=== PATIENT | male | born 1975 | race Caucasian/White ===

== ENCOUNTER 2018-01-09 21:57 | Outpatient (REF) | payer MEDICAID, SELFPAY ==
[2018-01-09 22:10] LABS: HCT 46.4 % (40.0-50.0); HGB 15.8 g/dL (13.5-17.5); Mean Corp. HGB Concentration 34.1 g/dL (32.0-36.0); Mean Corpuscular Hemoglobin 32.7 pg (27.0-33.0); Mean Corpuscular Volume 96.1 fL (80-95); Mean Platelet Volume 11.2 fL (8.0-11.0); Platelet Count 196 x1000/uL (130-400); RBC 4.83 m/cumm (4.50-6.00); RBC Distribution Width 11.8 % (11.8-14.1); White Blood Cell Count 8.17 k/cumm (4.4-10.8)
[2018-01-09 22:44] LABS: ALT 45 U/L (12-78); AST 28 U/L (15-37); Albumin 4.2 g/dL (3.4-5.0); Alkaline Phosphatase 88 U/L (46-116); Anion Gap 10.2 mmol/L (3-11); BUN 14 mg/dL (7-18); Bilirubin, Total 0.8 mg/dL (0.2-1.0); CO2 27.8 mmol/L (21.0-32.0); CREATININE 0.93 mg/dL (0.70-1.30); Calcium 8.9 mg/dL (8.5-10.1); Chloride 103 mmol/L (98-107); Cholesterol 199 mg/dL (50-200); Ferritin 210 ng/mL (8-388); Glucose 95 mg/dL (70-100); HDL Cholesterol 61 mg/dL (40-60); LDL CHOLESTEROL 123 mg/dL (<100); Potassium 3.9 mmol/L (3.5-5.1); Sodium 141 mmol/L (136-145); Triglyceride 127 mg/dL (30-150)
== END 2018-01-09 22:17 ==
LOC: NCHCN 21:57
PROVIDERS: PCP Internal Medicine; Visit Provider Internal Medicine
DX: I10 Essential (primary) hypertension (principal); Z13.220 Encounter for screening for lipoid disorders
CPT/HCPCS: 80053; 80061; 83721; 85027; 82728

== ENCOUNTER 2019-01-21 01:22 | Outpatient (CLI) | payer MEDICAID, SELFPAY ==
--- NOTE | 2019-01-21 15:05 | DI.US_ITS ---
EXAM: US SCROTUM CLINICAL HISTORY: SCROTAL PAIN N50.82. TECHNIQUE: Ultrasound performed using standard protocol. COMPARISON: No exams were available for comparison FINDINGS: Scrotal ultrasound was performed according to the usual protocol. There is homogeneous appearance of the testes except for incidental bilateral testicular microlithiasis. The epididymi appear normal a nd show normal vascular flow. Testicular vascular flow also normal symmetrical. No hydrocele or nabil icocele identified. IMPRESSION: Negative scrotal ultrasound.
== END 2019-01-21 01:42 ==
PROVIDERS: PCP Internal Medicine; Visit Provider Internal Medicine
DX: N50.82 Scrotal pain (principal); N50.89 Other specified disorders of the male genital organs
CPT/HCPCS: 76870

== ENCOUNTER 2021-05-31 10:03 | Outpatient (REF) | payer MEDICAID, SELFPAY ==
[2021-05-31 18:45] LABS: Anion Gap 8.5 mmol/L (3-11); BUN 13 mg/dL (7-18); CO2 28.5 mmol/L (21.0-32.0); CREATININE 0.9 mg/dL (0.70-1.30); Calcium 8.8 mg/dL (8.5-10.1); Calculated LDL 96 mg/dL (<100); Chloride 104 mmol/L (98-107); Cholesterol 177 mg/dL (<200); Glucose 77 mg/dL (74-106); HDL Cholesterol 67 mg/dL (40-60); Potassium 4.5 mmol/L (3.5-5.1); Sodium 141 mmol/L (136-145); Triglyceride 73 mg/dL (<150)
[2021-06-02 10:13] LABS: HIV-1/2 Ag & Ab Screen Negative (Negative)
[2021-06-02 10:15] LABS: Hepatitis C Ab w Rflx HCV PCR Negative (Negative)
== END 2021-05-31 10:04 | disposition home or self-care (01) ==
LOC: NCHCN 10:03
PROVIDERS: PCP Internal Medicine; Visit Provider Nurse Practitioner Family
DX: I10 Essential (primary) hypertension (principal); R31.21 Asymptomatic microscopic hematuria; Z11.4 Encounter for screening for human immunodeficiency virus [HIV]; Z11.59 Encounter for screening for other viral diseases
CPT/HCPCS: 80048; 80061; 86803; 87389

== ENCOUNTER → 2021-06-21 03:09 | Outpatient (CLI) | payer MEDICAID, SELFPAY ==
--- NOTE | 2021-06-21 13:45 | DI.US_ITS ---
Exam(s) US SOFT TISS EXTREMITY/GROIN EXAM: US SOFT TISS EXTREMITY/GROIN CLINICAL HISTORY: SOFT TISSUE MASS, M79.9. TECHNIQUE: Ultrasound was performed using standard protocol. COMPARISON: CT RENAL COLIC WO CONTRAST from 05/20/2012 CT ABD PELVIS WITH CONTRAST from 09/06/2015 FINDINGS: Sonographic assessment utilizing grayscale and color Doppler imaging was performed and targeted to th e area of clinical concern. A smoothly marginated hypoechoic mildly vascular nodule is noted in the subcutaneous fat of the poste rolateral upper thigh, corresponding to the palpable abnormality. It measures 1.8 x 0.9 x 1.7 cm. I t does not have the typical appearance of a lipoma. IMPRESSION: 1.8 centimeter circumscribed solid mass in the soft tissues corresponding to the palpable abnormality .Biopsy is recommended for further evaluation. DATA REPOSITORY:
== END ==
PROVIDERS: PCP Internal Medicine; Visit Provider Nurse Practitioner Family
DX: R22.2 Localized swelling, mass and lump, trunk (principal)
CPT/HCPCS: 76882

== ENCOUNTER 2023-03-11 15:40 | Emergency (ER) | payer MEDICAID, SELFPAY ==
--- NOTE | 2023-03-11 15:45 | DI.RAD_ITS ---
Exam(s) XR KNEE RT 3V AP,LAT,AMI EXAM: XR KNEE RT 3V AP,LAT,AMI CLINICAL HISTORY: R knee pain, felt a pop/snap. TECHNIQUE: 2D digital imaging was performed of the right knee. Three views obtained. AP, lateral an d PA tunnel views were obtained. COMPARISON: No exams were available for comparison FINDINGS: BONES: No acute fracture is present. No bony destructive lesion is seen. JOINTS: The knee is normally aligned. No joint effusion is seen. SOFT TISSUE: Normal. IMPRESSION: Unremarkable radiographs of the right knee. DATA REPOSITORY: RADIATION DOSE DELIVERED:
[2023-03-11 15:53] VITALS: BP 153/88; PULSE 66; RESP 18; TEMP 37.7; O2SAT 97
--- NOTE | 2023-03-11 15:56 | ED.GENADUL_ITS ---
Discharge Plan Disposition Patient Disposition: Home Condition: Stable Discharge Details Clinical Impression: Internal derangement of right knee Primary Care Provider: Cassius Marte ED Provider: Maurice Cohn Home Meds and New Rx's Prescriptions: Continued lisinopril 5 mg tablet 5 mg PO DAILY Held naproxen 500 MG tablet 500 mg PO Q12H PRN PRNQty: 10 0RF Hold Instructions: Resume on 03/25/23. PRN - do not take naproxen and ibuprofen at the same time Discharge Instructions Instructions: Knee Sprain (ED) Additional Instructions: You were seen in the emergency department for your right knee pain with a snapping or popping sensation. I question if you had some laxity to your ACL ligament. You may also have a meniscus injury, your x-ray shows no acute fracture does show a small effusion or swelling. We are providing you with a knee immobilizer and crutches, please toe tap and use only very light partial weightbearing on this leg. If this causes excessive pain please do not weight- bear whatsoever. Please rest, ice, compress and elevate the knee as often as possible, please use therapeutic dosing of Tylenol (acetamenophen) & Advil (ibuprofen) in an alternating fashion as follows: Take 1000mg of Tylenol every 6 hours without missing doses- that is 4 times per day. [place] in between the Tylenol dosings, take 400-600mg of Advil also on a 6 hour schedule, that is also 4 times per day. The daily maximum dosing of Tylenol is 4000mg, and the daily maximum dosing of Advil is 2400mg. This is safe to do for weeks. Please note that some common cold medications & prescription pain medications may contain acetamenophen and you need to read OTC drug labels and factor that in to maximum daily dosings. Please pursue an outpatient referral from your primary care provider for an orthopedic visit for specialized knee evaluation, this knee evaluation will be much more tolerable if you aggressively try to get the swelling down and take the correct amounts of Tylenol and ibuprofen religiously. Referrals: [facility] [Provider Group] Cassius Marte MD [Primary Care Provider] - Discharge Data Discharge Date/Time-TO BE ENTERED AT DEPARTURE: 03/11/23 17:43 Medical Decision Making This dictation utilizes [id number] dictation software and may contain unedited grammatical errors. 48 y/o M presents to ED today with a chief complaint of R knee pain, slipped off a tire, felt a snap/pop, R-foot dominant. Onset and characteristics include pain with movement and WB, sharp, no skin changes, no swelling/gross deformity. Patients' medical history: negative, otherwise healthy. Family and social history: noncontributory. Pertinent exam findings / vital signs include neurovascular intact in the right lower extremity, no overt crepitus, question laxity with Alicia test. Differential / pathologies of concern include internal knee injury, ACL tear, meniscal injury, fracture. Diagnostic studies of: -XR R Knee. -XR shows no acute fracture. Interventions of: -1g Tylenol, 400mg ibuprofen, ice pack. ED Course: Patient seen for mechanical fall and feeling a snap or a pop from his knee, question laxity on Alicia test, his x-ray shows no acute fracture he does have a small effusion, I did counseling specialist him on a possible internal derangement of the knee and provided knee immobilizer and crutches and recommend rice therapy and max dosing Tylenol and ibuprofen and following up with orthopedics by primary care referral. Findings not consistent with fracture/NV compromise. Disposition of Internal Derangement of Right Knee. Patient verbalized understanding of the plan and return to ED criteria and engaged in shared decision making. Medical Records Medical records reviewed: Yes I reviewed the patient's medical records. Imaging Data Radiologic Study: Imaging: X-Ray My impression: shows effusion Radiologist's impression: V rad read shows no fracture or dislocation, unremarkable joint spaces HPI General Date/Time Provider Initiated Documentation: 03/11/23 15:55 . HPI Narrative: 48 year-old male presents to ED today by POV/assistance with hospital wheelchair with a chief complaint of R knee pain, slipped off a tire while standing on it, R-foot dominant, with onset 3 hours ago. Quality described as felt a snap in his knee, no pain with knee still- pain with movement and WB, did feel a snap or popping sensation, no radiation to complete numbness, deformity, hip pain, headstrike during fall. Severity is described as 8/10. Palliating factors include nothing specific attempted. Provoking factors include nothing specific. Events leading up to the incident/Associated Symptoms: patient is otherwise healthy. Patient not anticoagulated. Related Data Home Medications Medication Instructions Recorded Confirmed naproxen 500 mg tablet 500 mg PO Q12H PRN PRN #10 tabs 09/06/15 07/13/21 lisinopril 5 mg tablet 5 mg PO DAILY 07/13/21 07/13/21 Previous Rx's Medication Instructions Recorded naproxen 500 mg tablet 500 mg PO Q12H PRN PRN #10 tabs 09/06/15 Allergies Allergy/AdvReac Type Severity Reaction Status Date / Time No Known Allergies Allergy Unverified 07/13/21 14:03 General Stated Complaint: Orthopedic JENNIFER: 4 Review of Systems All systems reviewed & are unremarkable except as noted in HPI and below PFSH All Active Problems (Updated 03/11/23 @ 17:21 by MINH Reina) Internal derangement of right knee (Acute) Hypertension (Chronic) Mass of right thigh (Acute) Social History Smoking/Tobacco Use Status: Never Smoking risk assessment performed?: Yes Drug use: Never Exam Narrative Exam Narrative: GENERAL APPEARANCE: Well-nourished, non-toxic, awake and alert, atraumatic, no acute distress. SKIN: Warm, pink, dry, intact, without rashes/lesions/ulcerations. HEAD: Normocephalic, atraumatic, normal hair distribution for gender/age. EYES: Pupils PERRLA, EOMs intact without nystagmus, normal conjunctiva, no exudates on lids/lashes. ENT: Nares patent, no circumoral cyanosis, no facial swelling NECK: Supple, trachea midline, painless cervical ROM. LUNGS/CHEST: Non-labored respirations, normal A/P diameter, symmetrical expansion, no chest wall deformity HEART (CV/PV): No peripheral edema, no JVD. ABDOMEN: Soft, non-distended, no guarding. MSK: Normal ROM, no swelling/deformity to bilateral UEs or LEs, moving all extremities without weakness, no cyanosis, spine midline without tenderness, normal curvature. R LE: No overt tenderness or crepitus, no gross swelling or deformity to the knee, no pain with varus valgus forces applied, question laxity with Alicia test, Mindy negative, femur stable, calf stable, no hip pain NEURO: Mental Status AAOx4 - alert to person, place, time, events No facial droop, no forehead involvement. Motor: No focal weakness - strength 5/5 in bilateral UEs and LEs, proximal and distal, symmetric. Sensory: sensation intact to light touch globally. Gait NT. PSYCH: euthymic, cooperative, pleasant, appropriate speech Course Vital Signs Vital signs: Vital Signs Temperature 37.7 C H 03/11/23 15:53 Pulse 66 03/11/23 15:53 Respiratory Rate 18 03/11/23 15:53 Blood Pressure 153/88 H 03/11/23 15:53 Pulse Oximetry 97 03/11/23 15:53 Temperature 37.7 C H 03/11/23 15:53 Temperature Source Oral 03/11/23 15:53 Pulse 66 03/11/23 15:53 Respiratory Rate 18 03/11/23 15:53 Blood Pressure 153/88 H 03/11/23 15:53 Pulse Oximetry 97 03/11/23 15:53 Oxygen Delivery Method Room Air 03/11/23 15:53 Oxygen Flow Rate 0 03/11/23 15:53
[2023-03-11] MEDS: Acetaminophen 500 MG TAB 1000 MG PO (16:21)
--- NOTE | 2023-03-11 17:01 | DI.VRAD_ITS ---
PROCEDURE INFORMATION: Exam: XR Right Knee Exam date and time: 03/11/2023 4:33 PM Age: 48 years old Clinical indication: Other: RT pain, felt pop/snap TECHNIQUE: Imaging protocol: Radiologic exam of the right knee. Views: 3 views. COMPARISON: US SOFT TISS EXTREMITY/GROIN 06/21/2021 1:40 PM FINDINGS: Bones/joints: No fracture or dislocation. Joint spaces are unremarkable. Soft tissues: No significant abnormality IMPRESSION: No acute findings. Dictated and Authenticated by: Edgar Abreu MD. Ordering:MITZI Richards MD
== END 2023-03-11 17:43 | disposition home or self-care (01) ==
PROVIDERS: Emergency Provider Physician Assistant; PCP Internal Medicine
DX: M23.91 Unspecified internal derangement of right knee (principal)
CPT/HCPCS: 73562; 99283

== ENCOUNTER → 2023-03-24 00:51 | Outpatient (CLI) | payer MEDICAID, SELFPAY ==
--- NOTE | 2023-03-24 08:15 | DI.MRI_ITS ---
Exam(s) MR LOWER JOINT RT WO EXAM: MR LOWER JOINT RT WO CLINICAL HISTORY: R KNEE PAIN ,? MENISCUS TEAR,INTERNAL DERANGEMENT,M23.91 TECHNIQUE: Multiplanar multisequence MRI of the knee was performed. COMPARISON: CR,XR XR KNEE RT 3V AP,LAT,AMI from 03/11/2023 FINDINGS: EFFUSION: There is a prominent joint effusion. There is also a Reynoso cyst in the medial popliteal fo ssa. This measures approximately 6 cm length by 1 cm AP by less than 1 cm wide exhibits some sign of rupture in that there does appear to be fluid extending down the medial gastrocnemius below the leve l of this Reynoso cyst. MARROW:There is no evidence of fracture, bone contusion, nor osteochondral defects.. There are no si gnificant osseous lesions. PATELLOFEMORAL COMPARTMENT: The quadriceps tendon is intact. The patellar ligament is intact. There is no significant thinning of the retropatellar cartilage. No evidence of fissure nor signific ant chondral defect. No osteochondral defect at this level.There is no intraosseous signal to sugges t recent patellar dislocation. There use some tearing of the medial capsule structures at junction o f medial patellar retinaculum and MCL. CRUCIATE LIGAMENTS: The anterior cruciate ligament is intact.The posterior cruciate ligament is intac t. MEDIAL COMPARTMENT/MEDIAL MENISCUS: Medial meniscus is torn.Tear involves both the anterior posterior horns and there is bucket-handle could aeration evident but without prominent displacement of menisc al fragment into the intercondylar notch. There is minute between the outer aspect of the medial men iscus and the MCL.. There is no significant cartilage loss over the medial femoral condyle nor articular edema. No osteo chondral defects. Subjacent medial tibial plateau appears unremarkable. MEDIAL COLLATERAL LIGAMENT: Sprain signal. There is also some tearing at junction with medial patell ar retinaculum. LATERAL COMPARTMENT/LATERAL MENISCUS: There is no evidence of lateral meniscal tear.There are no albaro dral defects, osteochondral defects, subarticular marrow edema, nor osteophytes evident. ILIOTIBIAL BAND: Intact LATERAL COLLATERAL LIGAMENT COMPLEX: The fibular collateral ligament is intact. The biceps femoris t endon is intact.Some fluid in the popliteus tendon sheath. IMPRESSION: 1. There is a bucket-handle tear of the medial meniscus involving both the anterior and posterior hor ns. There is no significant cartilage loss in the medial compartment nor osteochondral defects. No osteophytes. Lateral meniscus and lateral compartment appear unremarkable. 2. There is partial tearing of the medial patellar retinaculum at junction with the medial collateral ligament. 3. There are no cruciate ligament tears. 4. There is a mid knee joint effusion and there is a Reynoso cyst in the medial popliteal fossa. DATA REPOSITORY:
== END ==
PROVIDERS: PCP Internal Medicine; Visit Provider Student in an Organized Health Care Education/Training Program
DX: S83.211A Bucket-handle tear of medial meniscus, current injury, right knee, initial encounter (principal); X58.XXXA Exposure to other specified factors, initial encounter
CPT/HCPCS: 73721

== ENCOUNTER 2023-04-06 10:49 | Day surgery (SDC) | payer MEDICAID, SELFPAY ==
[2023-04-06] VITALS (11 sets, daily range): BP systolic 95–158; BP diastolic 54–93; PULSE 52–72; RESP 14–23; TEMP 36.2–36.7; O2SAT 95–99; BMI 24.0
--- NOTE | 2023-04-06 07:15 | PDOC.DSDIS_ITS ---
Date of service: 04/06/23 Time of Service: 11:30 Discharge Plan Disposition Patient Disposition: Home Condition: Stable Discharge Details Attending Provider: Regan Mays Primary Care Provider: Cassius Marte Home Meds and New Rx's Prescriptions: New aspirin 81 mg tablet,delayed release (DR/EC) 81 mg PO DAILY 14 Days Qty: 14 0RF naproxen 250 mg tablet 250 - 500 mg PO BID PRNQty: 40 0RF Rx Instructions: take with a meal oxycodone 5 mg tablet 5 - 10 mg PO Q4H MDD 30 mg PRN (Reason: moderate to severe pain) Qty: 12 0RF Discontinued ibuprofen 600 mg tablet 600 mg PO Q6H PRN Discharge Instructions Additional Instructions: Surgery: Right knee arthroscopy with partial medial meniscectomy and synovectomy/lysis of adhesions. Activity: Weightbearing as tolerated. Advance range of motion as comfort allows. No knee brace or crutches needed as soon as comfortable. Recommend avoiding sports, pivoting, and squatting for 6-8 weeks. A physical therapy pres cription will be sent electronically to start in 2 to 3 weeks. Prescriptions: Aspirin 81 mg take 1 daily to prevent a blood clot for 14 days Naproxen 250 mg take 1-2 every 12 hours with a meal as needed for moderate pain Oxycodone 5 mg take 1-2 every 4-6 hours as needed for severe pain You may use [id number] Tylenol (acetaminophen) as needed for mild pain. These pain medications may be taken all at once or in different combinations as needed. Also, recommend Colace (docusate) as a stool softener as surgery and pain medicine cause constipation. You may try [id number] diphenhydramine (Benadryl) 25-50 mg nightly as a sleep aid Dressings: Leave dressing in place for 3 days. May then remove and leave open to air or cover incisions with Band-Aids. Leave the sticky Steri-Strips in place until they fall off or remove them after you shower. May shower after 5 days. Follow-up: 10-[address] Mays You may take off the leg compression stockings this evening at home. You may also leave them on a few days longer if you have a history of leg swelling or edema. Let us know right away if you develop any redness, drainage, fevers, chest pain, or trouble breathing. Do not drink alcohol or drive for at least 24 hours after anesthesia. Please call the office during business hours with any questions or concerns. Discharge Orders Discharge Orders: Discharge Order (Routine); Ordered 04/06/23 Ordered By: Tristan Almeida DS: Diagnosis Discharge Diagnosis (1) Acute medial meniscus tear of right knee: Status: Acute
--- NOTE | 2023-04-06 07:22 | ROE_ITS ---
Date of service: 04/06/23 Time of Service: 14:00 Operative Note Operative Note DATE OF PROCEDURE: 04/06/23 PRE-OP DIAGNOSIS: Right knee 1. Displaced medial meniscus tear with block to motion POST-OP DIAGNOSIS: same 1. Bucket-handle medial meniscus tear 2. Suprapatellar adhesions 3. Patellofemoral plica 4. Mild medial femoral condyle chondromalacia PROCEDURE: Right knee 1. Partial medial meniscectomy, CPT #57565 2. Lysis of adhesions and synovectomy, CPT #20980: Suprapatellar, patellofemoral, and anterior SURGEON: Regan Mays TRACK HOE OPERATOR: None None ANESTHESIA TYPE: Local By Surgeon and General LMA/ETT Refer to Anesthesia Record ESTIMATED BLOOD LOSS: 5 PATHOLOGY: none sent TOURNIQUET TIME: 0 Patient was transported to: PACU Patient's condition: stable Indications: Please see complete medical record for details. Findings: Exam under anesthesia: Block to full extension and deep flexion, not vigorously tested due to known displaced meniscus tear. Stable Alicia, varus, and valgus stress. Arthroscopic findings: Moderate suprapatellar adhesions and abundant inflamed engaging patellofemoral synovitis with separate hernandez medial gutter into patellofemoral joint plica. Moderate intercondylar synovitis. Intact ACL PCL. Intact lateral meniscus and lateral cartilage. Obvious displaced into the notch bucket-handle medial meniscus tear involving the majority of the posterior horn and body of the meniscus with anterior horn relatively spared. Mild medial femoral condyle chondromalacia. Complex split tearing at the junction of the displaced meniscus and the peripheral remnant into the root with high-grade tearing about the root. Complex tearing at the midportion of the tear probably posterior horn body junction. Mild horizontal tearing of the posterior horn and body remnant. Procedure Description: In the operating room, general anesthesia was induced. The patient was positioned supine on the operating room table. All bony prominences were well- padded. Preoperative antibiotics were administered. The knee was prepped and draped in the usual sterile fashion. The correct patient, procedure, and side of the procedure were all verified prior to incision. Exam under anesthesia was performed. 10 cc of 0.25% bupivacaine containing epinephrine was infiltrated about the planned anteromedial and anterolateral knee arthroscopy portals as well as about the potential accessory medial meniscal repair surgical site. The portals were established and a complete diagnostic arthroscopy was performed with relevant findings detailed above. The mechanical shaver was used to resect suprapatellar adhesions in order to allow for full range of motion postoperatively. The mechanical biter had to be used to resect a hernandez medial plical band and then it was debrided to a stable synovial margin with a mechanical shaver and radiofrequency ablator. The radiofrequency ablator was used to coagulate the suprapatellar adhesions. The mechanical shaver was then used to resect abundant engaging patellofemoral synovitis, the knee was brought into flexion, intercondylar synovitis was debrided as well exposing the displaced meniscus tissue. The radiofrequency wand was to used to coagulate tissue at the stable and with normal capsule. The medial meniscus was carefully inspected and described above. It was readily reducible into the medial compartment, but the central part of the displaced torn tissue had complex additional tearing as well as concerning tearing and poor meniscal tissue into the root. The meniscal biters and mechanical shaver were used to debride the non-salvageable displaced meniscus tissue. Fairly quickly both the root and the central portion of the tear had minimal good meniscal quality tissue left. Given both these tears, and age near 49 years old decision was made to proceed with meniscectomy. The healthy tissue was really only the displaced meniscal body, but it did not make sense to repair this tissue without any intact connections or healthy posterior horn and root as it would not function without hoop stresses intact. At the narrow point of the displaced meniscus tissue, the meniscus was transected and the posterior horn ti ssue readily removed with mechanical shaver and then debrided to a stable margin involving resection of most of the root tissue attached to this tear using an alternate between the biters, shaver, and radiofrequency wand. The anterior remnant of this placed body had to be resected in piecemeal using mechanical biters and alternate with a shaver and ultimately contoured alternating portals into the anterior horn remnant. The meniscal peripheral remnant was inspected and debrided of some superior leaflet tearing posteriorly and horizontal tearing closer to the body. The radiofrequency wand and shaver were used to contour the remnant and margins of the tear. Meniscus remnant was stable, had modest anterior horn remnant tissue, but fairly minimal from the posterior horn through the body junction. Under direct arthroscopic visualization an 18-gauge needle was passed into the knee from superolateral into the suprapatellar pouch. The knee was copiously irrigated with arthroscopic fluid until there was a clear effluent before being drained of all fluid. The anteromedial and anterolateral portals were closed in 3-0 Monocryl in a buried interrupted fashion. 20 cc of 0.25% bupivacaine with epinephrine containing 4 mg of morphine was infiltrated into the knee through the previously placed needle. Mastisol, Steri-Strips, and 4 x 4 gauze were applied over the incisions followed by sterile soft roll. The knee was then wrapped gently with an SAL comressive bandage. The patient awoke from anesthesia without complication and was transferred to the recovery room in a stable condition.
[2023-04-06] MEDS: Lactated Ringers 1,000 ML 30 ML IV (11:48)
--- NOTE | 2023-04-06 12:33 | ANES.PREOP_ITS ---
General Info Date of Service Date Performed: 04/06/23 Height: 5 ft 8 in Weight: 71.6 kg Body Mass Index (BMI): 24.0 Surgical Procedure: Operation Date: 04/06/23 13:40 Proposed Procedure Side Surgeon p Knee Arthroscopy w Meniscus Repair vs Partial Meniscectomy, Possible Micro Fracture Right Regan Mays MD Meds Allergies and Home Medications Allergies Allergy/AdvReac Type Severity Reaction Status Date / Time No Known Allergies Allergy Unverified 04/05/23 11:53 Home Medication Medication Instructions Recorded ibuprofen 600 mg tablet 600 mg PO Q6H PRN 03/28/23 Current Visit Medications: Current Medications Generic Name Dose Route Start Last Admin Trade Name Freq PRN Reason Stop Dose Admin Ringer's Solution 1,000 mls @ 30 mls/hr 04/06/23 06:00 04/06/23 11:48 IV 05/05/23 23:59 30 mls/hr INFUSION LIBBY Administration Cefazolin Sodium/Dextrose 2 gm in 50 mls @ 100 mls/hr 04/06/23 06:00 Ancef Duplex IVPB 04/06/23 16:00 PREOP LIBBY IV Miscellaneous Supplies 1 each 04/06/23 06:00 Iv Access IV 05/05/23 23:59 DIRECTED LIBBY Oxycodone HCl 0 mg 04/06/23 07:15 Oxycodone 5 Mg Tab PO 05/06/23 07:14 Q3H PRN PRN Pain Sodium Chloride 0 ml 04/06/23 06:00 Normal Saline Flush 10 Ml Syr IV 05/05/23 23:59 PRN PRN Sodium Chloride 0 ml 04/06/23 06:00 Normal Saline 10 Ml Vial IJ 05/05/23 23:59 DIRECTED PRN Sterile Water 0 ml 04/06/23 06:00 Water,Injection,Sterile 10 Ml Vial IJ 05/05/23 23:59 DIRECTED PRN PFSH Active Problems Active Problems: Problem Status Onset Code Acute medial meniscus tear of right knee 03/11/23 S83.241A Hypertension I10 Mass of right thigh R22.41 Tobacco Smoking/Tobacco Use Status: Never Alcohol Alcohol Intake: current Alcohol intake frequency: holidays/special occasions only Substance Use Substance use: Never Substance use type: does not use Vital Signs and Lab Results Vital Signs Most Recent Vital Signs in EMR: Most Recent Vital Signs Temp Pulse Resp BP Pulse Ox 36.2 C L 52 L 18 125/92 H 98 04/06/23 11:14 04/06/23 11:14 04/06/23 11:14 04/06/23 12:18 04/06/23 11:14 Lab Results Blood Type / Crossmatch: No Data to Display Complete Blood Count: No Data to Display Complete Metabolic Panel: No Data to Display Liver Function Panel: No Data to Display Coagulation Panel: No Data to Display Cardiac Panel: No Data to Display Arterial Blood Gas: No Data to Display Venous Blood Gas: No Data to Display Pancreas Panel: No Data to Display Thyroid Panel: No Data to Display Infectious Disease: 2 No Data to Display Blood Cultures: No Data to Display Toxicology Panel: No Data to Display Anesthesia Assessment and Plan Anesthesia History Personal History: No History of Anesthesia Complications Family History: No Family History of Anesthesia Complications Exercise Tolerance Exercise Tolerance: Metabolic Equivalents>4 Cardiac & Pulmonary Exam Cardiac Exam: Normal S1/S2 Heart Sounds Pulmonary Exam: Clear Bilateral Breath Sounds Implantable Cardiac Device Does patient have a Pacemaker or an ICD?: No Airway Exam Known Difficult Airway: No Mallampati Class: 2 Mouth Opening: Normal (> 3cm) Thyromental Distance: Less than 3 cm Neck Range of Motion: Full ROM Neck Circumference: Normal Teeth Condition: Normal Dentition ASA Classification ASA Score: ASA 2 Emergency Case?: No NPO Status NPO Status: NPO Clears >2 hours, Solids >8 hours Anesthesia Plan Resuscitation Status: Full Code Anesthesia Technique: General Anesthesia Airway Planned: LMA Monitors Used: Standard Monitors Preoperative Comments:: 48 yo male for knee scope, medial meniscectomy. Sig PMHx: HTN, never smoker, denies other major.
[2023-04-06] MEDS: ceFAZolin 2 GM/50 ML BAG IVPB (13:59)
[2023-04-06] MEDS: MORPHine 4 MG/ML SYR (14:50)
[2023-04-06] MEDS: Bupivacaine 0.25% Pres-Free 30 ML VIAL (14:50)
[2023-04-06] MEDS: EPINEPHrine 10 MG/10 ML ML ×2 (14:50→15:20)
--- NOTE | 2023-04-06 16:33 | W.ANESPOSTOP ---
Postoperative Evaluation Date, Time and Location Date Performed: 04/06/23 Time Performed: 16:33 Patient Location: PACU Vital Signs Most Recent Imported Vital Signs: Most Recent Vital Signs Temp Pulse Resp BP Pulse Ox 36.4 C L 57 L 16 126/85 96 04/06/23 16:20 04/06/23 16:20 04/06/23 16:20 04/06/23 16:20 04/06/23 16:20 Pain Score Most Recent Pain Score: Most Recent Pain Score Pain Level 6 04/06/23 11:14 Assessment Mental Status: Awake (Alert & Oriented to Patient Baseline) Airway and Respiratory Function: Patent airway with normal (patient baseline) respiratory exam Cardiovascular Function: Hemodynamically Stable Hydration Status: Adequately Hydrated Nausea & Vomiting: No Nausea or Vomiting Pain: Pain is tolerable per patient Peripheral Nerve Block: Patient did not receive a nerve block
[2023-04-06] MEDS: oxyCODONE 5 MG TAB PO (17:03)
== END 2023-04-06 17:57 | disposition home or self-care (01) ==
LOC: SUR 10:50
PROVIDERS: PCP Internal Medicine; Visit Provider Student in an Organized Health Care Education/Training Program
PROC: (CPT 29876; principal; 2023-04-06 13:30)
DX: S83.241A Other tear of medial meniscus, current injury, right knee, initial encounter (principal); X58.XXXA Exposure to other specified factors, initial encounter; I10 Essential (primary) hypertension
CPT/HCPCS: 29876; 29881; J0131; J0690; J1100; J1885; J2001; J2250; J2270; J2405; J3475

== ENCOUNTER 2023-07-09 09:08 | Emergency (ER) | payer BC, SELFPAY ==
[2023-07-09 09:12] VITALS: BP 117/73; PULSE 84; RESP 16; TEMP 36.5; O2SAT 95
[2023-07-09] MEDS: Haloperidol 5 MG TAB PO (10:07)
[2023-07-09] MEDS: diphenhydrAMINE 25 MG CAP 50 MG PO (10:07)
[2023-07-09] MEDS: LORazepam 1 MG TAB 2 MG PO (10:08)
[2023-07-09 10:10] VITALS: BP 119/97; PULSE 68; RESP 18; TEMP 37; O2SAT 98
--- NOTE | 2023-07-09 17:09 | ED.GENADUL_ITS ---
Discharge Plan Disposition Patient Disposition: Home Discharge Details Clinical Impression: Insomnia Primary Care Provider: Benja Harrison ED Provider: Andrey Kelly Home Meds and New Rx's Prescriptions: New zolpidem 12.5 mg tablet,ext release multiphase 12.5 mg PO QHS PRNQty: 14 0RF No Action trazodone 50 mg tablet 50 mg PO HS Discharge Instructions Instructions: Insomnia (ED) Additional Instructions: Follow sleep hygiene guidelines. When you get home take the 3 pills provided to you in the emergency department. Stop taking the trazodone and you can try the zolpidem prescription provided. This may work better for your sleep issues. Please follow-up with your primary care provider for further evaluation especially if your symptoms do not improve. Do not take alcohol or other drugs with these medications. Discharge Data Discharge Date/Time-TO BE ENTERED AT DEPARTURE: 07/09/23 10:14 HPI General Date/Time Provider Initiated Documentation: 07/09/23 09:27 . Limitations to Documentation: no limitations . Information obtained by: patient and family . HPI Narrative: 48-year-old gentleman with past medical history of hypertension presents for evaluation of difficulty sleeping. He reports that he has been having symptoms for the last 4 days. Has had occasional issues with insomnia in the past, but this is not a chronic issue for him. Reports that he has been having difficulty falling asleep, when he is able to sleep he wakes up frequently. He reports exhaustion. Denies racing thoughts, excessive energy or and lack of need for sleep. Denies any drug or alcohol use. Reports that he was evaluated yesterday in urgent care and provided with trazodone which she states did not help last night. Related Data Home Medications Medication Instructions Recorded Confirmed trazodone 50 mg tablet 50 mg PO HS 07/09/23 07/09/23 zolpidem 12.5 mg tablet,extended 12.5 mg PO QHS PRN #14 tabs 07/09/23 release,multiphase Previous Rx's Medication Instructions Recorded zolpidem 12.5 mg tablet,extended 12.5 mg PO QHS PRN #14 tabs 07/09/23 release,multiphase Allergies Allergy/AdvReac Type Severity Reaction Status Date / Time No Known Allergies Allergy Verified 07/09/23 09:13 General Stated Complaint: GenMedical JENNIFER: 4 Exam Narrative Exam Narrative: Review of Systems: All systems reviewed & are unremarkable except as noted in HPI and below Well-developed, no acute distress NCAT PERRL, normal conjunctiva RRR Unlabored respiratory effort Nondistended abdomen Extremities w/o deformity, no cyanosis, no edema No rashes or lesions. no focal neurologic deficits Appropriate mood and affect Course Vital Signs Vital signs: Vital Signs Temperature 36.5 C 07/09/23 09:12 Pulse 84 07/09/23 09:12 Respiratory Rate 16 07/09/23 09:12 Blood Pressure 117/73 07/09/23 09:12 Pulse Oximetry 95 07/09/23 09:12 Temperature 37.0 C 07/09/23 10:10 Temperature Source Oral 07/09/23 10:10 Pulse 68 07/09/23 10:10 Respiratory Rate 18 07/09/23 10:10 Respiratory Effort Normal, Non-Labored 07/09/23 09:20 Respiratory Depth Normal 07/09/23 09:20 Respiratory Pattern Normal 07/09/23 09:20 Blood Pressure 119/97 H 07/09/23 10:10 Blood Pressure Position Sitting 07/09/23 09:12 Pulse Oximetry 98 07/09/23 10:10 Oxygen Delivery Method Room Air 07/09/23 10:10 Oxygen Flow Rate 0 07/09/23 10:10 Pain Level 0 07/09/23 09:12 Medical Decision Making Evaluation of insomnia. The patient is well-appearing and has a reassuring examination and vital signs. He does look tired and strikes me as someone that definitely wants to go to sleep. He does not have any signs or symptoms concerning for thyroid dysfunction or psychiatric disorders such as titi. He denies any drug use. The trazodone was not effective for him. Discussed treatment plan options and different medications. Will give Benadryl, Haldol and Ativan as discharge medications for him to take when he goes home. This should provide him with some immediate rest. Advised to stop the trazodone and try zolpidem as a medication for insomnia. A few doses of this medication were provided. Discussed the risks of sleepwalking, advised to avoid alcohol use. And advised that the patient should follow-up closely with his PCP if this issue continues. Medical Records Medical records reviewed: Yes I reviewed the patient's medical records. Lab Data Lab results reviewed: Yes I reviewed the patient's lab results. Quality:SDOH Health Related Social Needs: No Data to Display PFSH All Active Problems Insomnia (Acute) Acute medial meniscus tear of right knee (Acute 03/11/23) Hypertension (Chronic) Mass of right thigh (Acute) Social History Smoking/Tobacco Use Status: Never Smoking risk assessment performed?: Yes Alcohol Intake: current Alcohol Intake frequency: holidays/special occasions only Drug use: Never Substance use type: does not use Housing: house Do you feel safe at home: Yes Do you feel safe in your relationship?: Yes
== END 2023-07-09 10:14 | disposition home or self-care (01) ==
PROVIDERS: Emergency Provider Emergency Medicine; PCP Family Medicine
DX: G47.00 Insomnia, unspecified (principal)
CPT/HCPCS: 99283

== ENCOUNTER 2023-07-22 17:50 | Emergency (ER) | payer BC, SELFPAY ==
[2023-07-22] VITALS (27 sets, daily range): BP systolic 126–161; BP diastolic 68–100; PULSE 41–70; RESP 7–23; TEMP 36.9; O2SAT 95–100
--- NOTE | 2023-07-22 18:00 | RT.EKG_ITS ---
APPROVED REPORT Exam: Resting ECG Reason for Exam: SOB Patient Location: E HR:46 bpm ECG Measurements Heart Rate 46 AXIS LA 150 P 63 QRSd 96 QRS -56 QT 448 T 24 QTc 391 Conclusion Sinus bradycardia...rate< 60 Probable left atrial enlargement...P >50mS, <-0.10mV V1 Left anterior fascicular block...axis(240,-40), init forces inf Left ventricular hypertrophy...multiple voltage criteria ST elev, probable normal early repol pattern...ST elevation, age<55 sinus bradycardua, left axis
[2023-07-22 18:56] LABS: Abs Immature Grans 0.03 10^3/uL (0.0-0.06); Absolute Basophil Count 0.04 10^3/uL (0.0-0.2); Absolute Eosinophil Count 0.06 10^3/uL (0.0-0.7); Absolute Lymphocyte Count 1.06 10^3/uL (1.2-3.4); Absolute Monocyte Count 0.59 10^3/uL (0.1-0.8); Absolute Neutrophil Count 6.99 10^3/uL (1.2-6.7); Basophils % 0.5; Eosinophils % 0.7; HCT 49.4 % (40.0-50.0); HGB 16.5 g/dL (13.5-17.5); Immature Grans % 0.3; Lymphocytes % 12.1; MCH 32.6 pg (27.0-33.0); MCHC 33.4 % (32.0-36.0); MCV 98 fL (80-95); MPV 9.9 fL (8.0-11.0); Monocytes % 6.7; Neutrophils % 79.7; Platelet Count 200 10^3/uL (130-400); RBC 5.06 10^6/uL (4.36-5.78); RDW 11.9 % (11.8-14.1); RDW-SD 42.9 fL; WBC 8.77 10^3/uL (4.4-10.8)
[2023-07-22 19:11] LABS: ALT 26 U/L (16-63); AST 13 U/L (15-37); Albumin 3.8 g/dL (3.4-5.0); Alkaline Phosphatase 77 U/L (46-116); Anion Gap 9.7 mmol/L (3-11); BUN 13 mg/dL (7-18); Bilirubin, Total 1.2 mg/dL (0.2-1.0); CO2 24.3 mmol/L (21.0-32.0); CREATININE 0.9 mg/dL (0.70-1.30); Calcium 8.5 mg/dL (8.5-10.1); Chloride 107 mmol/L (98-107); Glucose 81 mg/dL (74-106); Magnesium 2.1 mg/dL (1.8-2.4); Potassium 3.7 mmol/L (3.5-5.1); Sodium 141 mmol/L (136-145); Troponin I < 50 ng/L (< or =60)
[2023-07-22 19:25] LABS: Bilirubin Negative (Negative); Blood Small (Negative); Clarity Clear (Clear); Glucose Negative (Negative); Ketones 15 mg/dL (Negative); Leukocyte Esterase Negative (Negative); Nitrite Negative (Negative); Specific Gravity >= 1.030 (1.005-1.025); Urobilinogen 0.2 mg/dL (Up to 0.2); pH 5.5 (5-8)
[2023-07-22 19:29] LABS: Bacteria Few HPF (Negative); C & S Indicated? No; Casts Negative LPF (Negative); Crystals Negative HPF (Negative); Epithelial Cells Negative HPF (Negative); Mucus Moderate (Negative); WBC Negative HPF (0-5)
--- NOTE | 2023-07-22 20:52 | W.ED.GENAD ---
Discharge Plan Disposition Patient Disposition: Home Condition: Stable Discharge Details Clinical Impression: Adverse reaction to beta-khurram Primary Care Provider: Benja Harrison ED Provider: Solo Ly Home Meds and New Rx's Prescriptions: Held dorzolamide-timolol 22.3-6.8 mg/mL drops 1 drp ophthalmic (eye) BID Hold Instructions: Hold for the next 24 hours Patient Comments: INSTILL ONE DROP IN EACH EYE THREE TIMES A DAY No Action trazodone 50 mg tablet 50 mg PO HS zolpidem 12.5 mg tablet,ext release multiphase 12.5 mg PO QHS PRNQty: 14 0RF Discharge Instructions Additional Instructions: Upon review of your labs and monitoring I feel that there is a high potential that you are having a reaction to your eyedrops. Please hold these eyedrops for the next 24 hours unless you start having eye redness and worsening eye pain then restart the drops. Please return to the emergency department tomorrow for recheck of your pressures unless you have any significant worsening of symptoms. The pressure in your right eye today's visit was 8.7 and in the left eye was 10. These are appropriate and safe at this time Discharge Data Discharge Date/Time-TO BE ENTERED AT DEPARTURE: 07/22/23 21:05 HPI General Mode of arrival: ambulatory. Date/Time Provider Initiated Documentation: 07/22/23 18:01. Limitations to Documentation: no limitations. Information obtained by: patient and RN notes reviewed. History of Present Illness 48 year old M presents to the emergency department with the chief complaint of General malaise, weakness, shortness of breath, nausea, described as moderate, Patient started experiencing this day(s) (3) and it has been constant. No relieving factors improve symptom(s), Medication worsens symptoms . Patient did receive the following treatments prior to arrival, none Related Data Home Medications Medication Instructions Recorded Confirmed trazodone 50 mg tablet 50 mg PO HS 07/09/23 07/23/23 zolpidem 12.5 mg tablet,extended 12.5 mg PO QHS PRN #14 tabs 07/09/23 07/23/23 release,multiphase dorzolamide 22.3 mg-timolol 6.8 1 drp ophthalmic (eye) BID 07/22/23 07/23/23 mg/mL eye drops Previous Rx's Medication Instructions Recorded zolpidem 12.5 mg tablet,extended 12.5 mg PO QHS PRN #14 tabs 07/09/23 release,multiphase Allergies Allergy/AdvReac Type Severity Reaction Status Date / Time No Known Allergies Allergy Verified 07/23/23 16:08 General Stated Complaint: GenMedical JENNIFER: 3 Review of Systems Constitutional Constitutional: Denies chills, Reports fatigue, Denies fever(s), Denies headache(s), Reports lethargy, Reports malaise and Reports poor appetite ENT Ears, Nose, Mouth, and Throat: Denies headache(s) Cardiovascular Cardiovascular: Denies chest pain, Denies syncope and Reports dyspnea Respiratory Respiratory: Denies cough and Reports dyspnea Gastrointestinal Gastrointestinal: Denies abdominal pain, Denies diarrhea, Reports nausea and Denies vomiting Musculoskeletal Musculoskeletal: Denies myalgias Integumentary/Breasts Skin/Breast: Denies rash Neurologic Neurologic: Denies syncope, Denies headache(s) and Denies localized weakness Psychiatric Psychiatric: Reports abnormal sleep pattern Endocrine Endocrine: Reports fatigue Exam Const General: cooperative, no acute distress and not ill appearing Orientation: alert, awake and oriented x3 HENMT Mouth: moist mucous membranes Eyes General: appearance normal, both eyes and all related structures Visual Ray: normal visual ray by confrontation Alignment and Position: alignment normal Periorbital: periorbital findings normal Eyelids: eyelids normal Conjunctivae: conjunctivae normal Sclera: sclerae normal Cornea: corneas normal Resp Effort & Inspection: normal respiratory effort, able to speak in complete sentences and no respiratory distress Auscultation: clear to auscultation bilaterally Cardio Rate: bradycardic Rhythm: regular rhythm Heart Sounds: S1 normal and S2 normal Skin General skin exam: no rashes or lesions noted Neuro General: patient alert, patient awake, patient oriented x3, moves all extremities, no focal motor deficits, CN's II-XI intact bilaterally and not confused Cranial Nerves: CN's II-XI intact bilaterally Motor: muscle tone normal throughout and strength abnormal (Generalized weakness) Sensory Exam: no sensory deficits noted Course Vital Signs Vital signs: Vital Signs Temperature 36.9 C 07/22/23 17:55 Pulse 66 07/22/23 17:55 Respiratory Rate 18 07/22/23 17:55 Blood Pressure 143/91 H 04/06/24 17:55 Pulse Oximetry 98 07/22/23 17:55 Temperature 36.9 C 07/22/23 18:27 Temperature Source Skin 07/22/23 18:27 Pulse 54 L 07/22/23 20:16 Pulse 64 07/22/23 20:30 Respiratory Rate 14 07/22/23 20:30 Respiratory Effort Normal, Non-Labored 07/22/23 18:30 Respiratory Depth Normal 07/22/23 18:30 Respiratory Pattern Normal 07/22/23 18:30 Blood Pressure 131/90 07/22/23 20:16 Blood Pressure Mean 102 07/22/23 20:16 Pulse Oximetry 96 07/22/23 20:30 Oxygen Delivery Method Room Air 07/22/23 18:27 Oxygen Flow Rate 0 07/22/23 18:27 Pain Level 0 07/22/23 18:27 Lab/Test Results Lab/Test Results: Laboratory Tests Range/Units 07/22/23 07/22/23 18:22 19:15 WBC (4.4-10.8) 10^3/uL 8.77 RBC (4.36-5.78) 10^6/uL 5.06 Hgb (13.5-17.5) g/dL 16.5 Hct (40.0-50.0) % 49.4 MCV (80-95) fL 98 H MCH (27.0-33.0) pg 32.6 MCHC (32.0-36.0) % 33.4 RDW (11.8-14.1) % 11.9 Plt Count (130-400) 10^3/uL 200 MPV (8.0-11.0) fL 9.9 Immature Gran % 0.3 Neutrophils % 79.7 Lymphocytes % 12.1 Monocytes % 6.7 Eosinophils % 0.7 Basophils % 0.5 Nucleated RBC % (0.0-0.3) % 0.0 Absolute Neutrophils (1.2-6.7) 10^3/uL 6.99 H Absolute Lymphocytes (1.2-3.4) 10^3/uL 1.06 L Absolute Monocytes (0.1-0.8) 10^3/uL 0.59 Absolute Eosinophils (0.0-0.7) 10^3/uL 0.06 Absolute Basophils (0.0-0.2) 10^3/uL 0.04 Sodium (136-145) mmol/L 141 Potassium (3.5-5.1) mmol/L 3.7 Chloride (98-107) mmol/L 107 Carbon Dioxide (21.0-32.0) mmol/L 24.3 Anion Gap (3-11) mmol/L 9.7 BUN (7-18) mg/dL 13 Creatinine (0.70-1.30) mg/dL 0.9 Est GFR (CKD-EPI 2020) (mL/min/1.73m2) 104.70 Glucose (74-106) mg/dL 81 Calcium (8.5-10.1) mg/dL 8.5 Magnesium (1.8-2.4) mg/dL 2.1 Total Bilirubin (0.2-1.0) mg/dL 1.2 H AST (15-37) U/L 13 L ALT (16-63) U/L 26 Alkaline Phosphatase (46-116) U/L 77 Troponin I (< or =60) ng/L < 50 Total Protein (6.4-8.2) g/dL 7.0 Albumin (3.4-5.0) g/dL 3.8 Urine Color (Yellow) Yellow Urine Clarity (Clear) Clear Urine pH (5-8) 5.5 Ur Specific [place] (1.005-1.025) >= 1.030 H Urine Protein (Neg-Trace) mg/dL Negative Urine Ketones (Negative) mg/dL 15 H Urine Blood (Negative) Small H Urine Nitrite (Negative) Negative Urine Bilirubin (Negative) Negative Urine Urobilinogen (Up to 0.2) mg/dL 0.2 Ur Leukocyte Esterase (Negative) Negative Urine RBC (0-2) HPF 5-10 H Urine WBC (0-5) HPF Negative Ur Epithelial Cells (Negative) HPF Negative Urine Crystals (Negative) HPF Negative Urine Bacteria (Negative) HPF Few Urine Casts (Negative) LPF Negative Urine Mucus (Negative) Moderate Ur Culture Indicated? No Urine Glucose (Negative) mg/dL Negative Medical Decision Making Patient presenting to the emergency department for generally not feeling well, tired, weakness, intermittent shortness of breath and some nausea. Patient states that this started on when he started having significant eye pain and discomfort and went to [facility] where they saw his ocular pressures were 55 bilateral. He states that he started feeling poorly after they gave him medication. He did have a procedure to reduce the pressure in his eyes on Monday but has continued to feel poor since. Patient does report that he has been having some insomnia and started medication but this medication was started prior to any of the symptoms starting with no obvious noted changes while on these other meds. Patient denies any pain or discomfort headache or other symptoms. Physical exam shows normal neurological exam, slight generalized weakness but no focal findings, normal cardiac and respiratory exam. I question possible beta-khurram toxicity versus systemic reaction. Will check labs and glucose and monitor patient. Please see physician interpretation for full interpretation of EKG but upon my review patient is in sinus rhythm, bradycardic, otherwise does not meet acute STEMI criteria Reviewed patient's labs and nondiagnostic CBC, CMP shows slightly elevated bilirubin otherwise again nondiagnostic, negative troponin, urinalysis does show high specific gravity and some blood and ketones again otherwise nondiagnostic. Reassessed patient and patient's heart rate has naturally improved and he does report improvement of symptoms. Kane-Pen was utilized and ocular pressures were 8.7 in the right and 10 and left. Patient's last dose of medication was early this morning which I feel is high suspicion of systemic beta-khurram reaction with patient reporting baseline low heart rate. Will have patient hold off on medication unless he becomes symptomatic and return in 24 hours for recheck of ocular pressure as he states he does have an appointment in 2 days with photography intern for postprocedural reassessment. After discussion of diagnosis and plan of care patient has no further needs, questions, or concerns and states clear understanding to return to the emergency department for any worsening symptoms. This documentation was generated using [employer] dictation system, please disregard any oddities of phrase or misspellings. Quality:SDOH Health Related Social Needs: No Data to Display PFSH All Active Problems (Updated 07/23/23 @ 16:21 by Solo Ly NP) Encounter for ophthalmic examination and evaluation (Acute) Adverse reaction to beta-khurram (Acute) Insomnia (Acute) Acute medial meniscus tear of right knee (Acute 03/11/23) Hypertension (Chronic) Mass of right thigh (Acute) Social History Smoking/Tobacco Use Status: Never Smoking risk assessment performed?: Yes Alcohol Intake: current Alcohol Intake frequency: holidays/special occasions only Drug use: Never Substance use type: does not use Housing: house Do you feel safe at home: Yes Do you feel safe in your relationship?: Yes
== END 2023-07-22 21:05 | disposition home or self-care (01) ==
PROVIDERS: Emergency Provider Nurse Practitioner Family; PCP Family Medicine
DX: R53.1 Weakness (principal); R06.02 Shortness of breath; R11.0 Nausea; T44.7X5A Adverse effect of beta-adrenoreceptor antagonists, initial encounter; I10 Essential (primary) hypertension
CPT/HCPCS: 36415; 80053; 82962; 93005; 99284; 81003; 81015; 83735; 84484; 85025; 93010

== ENCOUNTER 2023-07-23 16:02 | Emergency (ER) | payer BC, SELFPAY ==
[2023-07-23 16:08] VITALS: BP 152/83; PULSE 52; RESP 16; TEMP 36.3; O2SAT 99
--- NOTE | 2023-07-23 16:10 | ED.GENADUL_ITS ---
Discharge Plan Disposition Patient Disposition: Home Discharge Details Clinical Impression: Encounter for ophthalmic examination and evaluation, Adverse reaction to beta- khurram Primary Care Provider: Benja Harrison ED Provider: Solo Ly Home Meds and New Rx's Prescriptions: Held dorzolamide-timolol 22.3-6.8 mg/mL drops 1 drp ophthalmic (eye) BID Hold Instructions: Until speaking with assembly machine set up mechanic Patient Comments: INSTILL ONE DROP IN EACH EYE THREE TIMES A DAY No Action trazodone 50 mg tablet 50 mg PO HS zolpidem 12.5 mg tablet,ext release multiphase 12.5 mg PO QHS PRNQty: 14 0RF Discharge Instructions Additional Instructions: Please follow previous discussed discharge instructions to monitor symptoms, return for any new or significant worsening of condition, and follow-up with your eye care provider. Continue to hold the ocular drops until you see your assembly machine set up mechanic. Discharge Data Discharge Date/Time-TO BE ENTERED AT DEPARTURE: 07/23/23 16:27 HPI General Mode of arrival: ambulatory . Date/Time Provider Initiated Documentation: 07/23/23 16:04 . Limitations to Documentation: no limitations . Information obtained by: patient . History of Present Illness 48 year old M presents to the emergency department with the chief complaint of Recheck eyes, Patient notes no other symptoms.. Related Data Home Medications Medication Instructions Recorded Confirmed trazodone 50 mg tablet 50 mg PO HS 07/09/23 07/23/23 zolpidem 12.5 mg tablet,extended 12.5 mg PO QHS PRN #14 tabs 07/09/23 07/23/23 release,multiphase dorzolamide 22.3 mg-timolol 6.8 1 drp ophthalmic (eye) BID 07/22/23 07/23/23 mg/mL eye drops Previous Rx's Medication Instructions Recorded zolpidem 12.5 mg tablet,extended 12.5 mg PO QHS PRN #14 tabs 07/09/23 release,multiphase Allergies Allergy/AdvReac Type Severity Reaction Status Date / Time No Known Allergies Allergy Verified 07/23/23 16:08 General Stated Complaint: Recheck JENNIFER: 5 Review of Systems Eyes Eyes: Reports as per HPI, Denies change in vision, Denies eye discharge, Denies irritation, Denies eye pain, Denies photophobia and Denies other (reddness) Exam Const General: cooperative, no acute distress and not ill appearing Orientation: alert, awake and oriented x3 HENMT Mouth: moist mucous membranes Eyes General: appearance normal, both eyes and all related structures Visual Ray: normal visual ray by confrontation Alignment and Position: alignment normal Periorbital: periorbital findings normal Eyelids: eyelids normal Conjunctivae: conjunctivae normal Sclera: sclerae normal Cornea: corneas normal Resp Effort & Inspection: normal respiratory effort, able to speak in complete sentences and no respiratory distress Skin General skin exam: no rashes or lesions noted Neuro General: patient alert, patient awake, patient oriented x3, moves all extremities and no focal motor deficits Sensory Exam: no sensory deficits noted Course Vital Signs Vital signs: Vital Signs Temperature 36.3 C L 07/23/23 16:08 Pulse 52 L 07/23/23 16:08 Respiratory Rate 16 07/23/23 16:08 Blood Pressure 152/83 H 07/23/23 16:08 Pulse Oximetry 99 07/23/23 16:08 Temperature 36.3 C L 07/23/23 16:08 Temperature Source Temporal Artery Scan 07/23/23 16:08 Pulse 52 L 07/23/23 16:08 Respiratory Rate 16 07/23/23 16:08 Respiratory Effort Normal, Non-Labored 07/23/23 16:09 Blood Pressure 152/83 H 07/23/23 16:08 Blood Pressure Position Sitting 07/23/23 16:08 Pulse Oximetry 99 07/23/23 16:08 Oxygen Delivery Method Room Air 07/23/23 16:08 Oxygen Flow Rate 0 07/23/23 16:08 Pain Level 0 07/23/23 16:08 Medical Decision Making Patient Eva presenting to the emergency department for recheck of ocular pressure. Patient seen yesterday in the ED by myself for adverse reaction to beta-khurram eyedrops that were causing significant systemic symptoms. Please see yesterday's note for initial evaluation. Held patient's medication and requested him to come back for pressure check today. Patient reports systemic symptoms related to the medication have all subsided and he is back to baseline beyond the insomnia that he has been having over the last week or more. Patient denies pain discomfort vision loss change or other symptoms. Pressures were checked with centimeter and results of 9.5OD / 11.2OS were obtained. I feel these are appropriate to continue just monitoring symptoms with holding drops until patient can follow-up tomorrow as previously arranged. After discussion of diagnosis and plan of care patient has no further needs, questions, or concerns and states clear understanding to return to the emergency department for any worsening symptoms. This documentation was generated using [employer] system, please disregard any oddities of phrase or misspellings. Quality:SDOH Health Related Social Needs: No Data to Display PFSH All Active Problems (Updated 07/23/23 @ 16:21 by Solo Ly NP) Encounter for ophthalmic examination and evaluation (Acute) Adverse reaction to beta-khurram (Acute) Insomnia (Acute) Acute medial meniscus tear of right knee (Acute 03/11/23) Hypertension (Chronic) Mass of right thigh (Acute) Social History Smoking/Tobacco Use Status: Never Smoking risk assessment performed?: Yes Alcohol Intake: current Alcohol Intake frequency: holidays/special occasions only Drug use: Never Substance use type: does not use Housing: house Do you feel safe at home: Yes Do you feel safe in your relationship?: Yes
== END 2023-07-23 16:27 | disposition home or self-care (01) ==
PROVIDERS: Emergency Provider Nurse Practitioner Family; PCP Family Medicine
DX: Z04.89 Encounter for examination and observation for other specified reasons (principal)
CPT/HCPCS: 99282

== ENCOUNTER 2023-08-03 16:01 | Outpatient (REF) | payer BC, SELFPAY ==
[2023-08-03 16:04] LABS: Abs Immature Grans 0.03 10^3/uL (0.0-0.06); Absolute Basophil Count 0.03 10^3/uL (0.0-0.2); Absolute Eosinophil Count 0.01 10^3/uL (0.0-0.7); Absolute Lymphocyte Count 0.62 10^3/uL (1.2-3.4); Absolute Monocyte Count 0.54 10^3/uL (0.1-0.8); Absolute Neutrophil Count 7.62 10^3/uL (1.2-6.7); Basophils % 0.3; Eosinophils % 0.1; HCT 50.3 % (40.0-50.0); HGB 16.7 g/dL (13.5-17.5); Immature Grans % 0.3; MCH 32.3 pg (27.0-33.0); MCHC 33.2 % (32.0-36.0); MCV 97 fL (80-95); MPV 10.5 fL (8.0-11.0); Monocytes % 6.1; Neutrophils % 86.2; Platelet Count 214 10^3/uL (130-400); RBC 5.17 10^6/uL (4.36-5.78); RDW 11.8 % (11.8-14.1); RDW-SD 42.4 fL; WBC 8.85 10^3/uL (4.4-10.8)
[2023-08-03 16:28] LABS: ALT 31 U/L (16-63); AST 16 U/L (15-37); Albumin 4.2 g/dL (3.4-5.0); Alkaline Phosphatase 84 U/L (46-116); Amylase 62 U/L (25-115); Anion Gap 8.4 mmol/L (3-11); BUN 12 mg/dL (7-18); Bilirubin, Total 1.4 mg/dL (0.2-1.0); CO2 30.6 mmol/L (21.0-32.0); CREATININE 0.9 mg/dL (0.70-1.30); Calcium 9.8 mg/dL (8.5-10.1); Chloride 105 mmol/L (98-107); Glucose 81 mg/dL (74-106); Lipase 50 U/L (16-77); Potassium 4.3 mmol/L (3.5-5.1); Sodium 144 mmol/L (136-145); TSH (W/Ref FT4) 1.17 uIU/mL (0.36-3.74); Total Protein 7.2 g/dL (6.4-8.2)
== END 2023-08-03 16:02 | disposition home or self-care (01) ==
LOC: NCHCN 16:01
PROVIDERS: PCP Family Medicine; Visit Provider Family Medicine
DX: R10.9 Unspecified abdominal pain (principal)
CPT/HCPCS: 80053; 83690; 82150; 84443; 85025

== ENCOUNTER → 2023-10-04 02:20 | Outpatient (CLI) | payer BC, SELFPAY ==
--- NOTE | 2023-10-04 14:01 | DI.RAD_ITS ---
Exam(s) XR HAND RT COMPLETE EXAM: XR HAND RT COMPLETE CLINICAL HISTORY: PAIN RT HAND, M79.641. TECHNIQUE: 2D digital imaging was performed. Three views. COMPARISON: No exams were available for comparison FINDINGS: BONES: No acute fracture is present. No bony destructive lesion is seen. JOINTS: No dislocation present. SOFT TISSUE: Normal. IMPRESSION: Unremarkable radiographs of the right hand. DATA REPOSITORY: RADIATION DOSE DELIVERED:
== END ==
PROVIDERS: PCP Family Medicine; Visit Provider Family Medicine
DX: M79.641 Pain in right hand (principal)
CPT/HCPCS: 73130

== ENCOUNTER → 2025-04-02 12:03 | Outpatient (CLI) | payer BC, SELFPAY ==
--- NOTE | 2025-04-02 | DI.MRI_ITS ---
Exam(s) MR UPPER JOINT RT WO EXAM: MR UPPER JOINT RT WO CLINICAL HISTORY: PAIN RT SHOULDER M25.511. TECHNIQUE: Multiplanar multisequence MRI was performed. COMPARISON: None. FINDINGS: BONES: There is no fracture or contusion pattern. JOINTS:The acromioclavicular joint is normal. The glenohumeral joint is normal. TENDONS: Supraspinatus: Abnormal thickening an areas of high signal consistent with tendinosis and partial tears. Infraspinatus: Unremarkable. Subscapularis: Full-thickness tear with some retraction. Teres [place]: Unremarkable. Biceps and [place]: Thickening of the biceps tendon the abnormal signal at and above the level of the lesser tuberosity. Severe partial tear assist tendinosis. MUSCLES: Unremarkable. GLENOID LABRUM: Unremarkable on this noncontrast examination. SOFT TISSUES: Unremarkable. BURSAE: Subacromial and subdeltoid bursae show small amount of fluid. Fluid in the subcoracoid bursa.. IMPRESSION: Full-thickness tear of subscapularis tendon with retraction. Severe tendinosis versus partial tear of the biceps tendon. Supraspinatus tendinosis with focal partial tears. DATA REPOSITORY:
== END ==
LOC: DI 12:03
PROVIDERS: PCP Family Medicine; Visit Provider Family Medicine
DX: M25.511 Pain in right shoulder (principal); M75.21 Bicipital tendinitis, right shoulder; M75.111 Incomplete rotator cuff tear or rupture of right shoulder, not specified as traumatic
CPT/HCPCS: 73221